=== PATIENT | female | born 1955 | race Caucasian/White ===

== ENCOUNTER 2019-12-02 13:43 | Day surgery (SDC) | payer OTHER ==
[2019-11-25 14:54] VITALS: BMI 31.6
--- NOTE | 2019-12-02 07:46 | OP ---
Operative Note - Note: Operative Date: 12/02/19 Pre-Operative Diagnosis: Right medial meniscus tear Operation: Right partial medial meniscectomy Implants: Arthrex distal radius locking plate, 4 distal locking screws, 2 proximal locking screws, 1 proximal nonlocking screw Post-Operative Diagnosis: Same as Pre-op Surgeon: Sushant Bianchi Furnace Setter: Michelle Gomez Anesthesia: General Operative Report Dictated: Yes
[2019-12-02] MEDS ORDERED: BUPIVACAINE HCL/PF 0.5% (5MG/ML) 10 ML VIAL ONE ×2 (13:49→15:27)
[2019-12-02] MEDS ORDERED: ROPIVACAINE HCL 0.5% 30ML VIAL ONE (14:04)
[2019-12-02] MEDS ORDERED: DEXAMETHASONE SOD PHOSPHATE/PF 10 MG/ML SDV ONE (14:04)
[2019-12-02] MEDS ORDERED: MIDAZOLAM HCL 2 MG/2 ML SINGLE DOSE VIAL ONE ×2 (14:04→14:57)
[2019-12-02] MEDS ORDERED: PROPOFOL 20 ML ONE ×2 (14:57→15:43)
[2019-12-02] MEDS ORDERED: oxyCODONE HCL 5 MG TABLET PO PRN (15:16)
[2019-12-02] MEDS ORDERED: ONDANSETRON 4 MG/2 ML VIAL IVPUSH PRN (15:16)
[2019-12-02] MEDS ORDERED: ONDANSETRON 4 MG/2 ML VIAL ONE (15:28)
[2019-12-02] MEDS ORDERED: DEXAMETHASONE SOD PHOSPHATE 4 MG/1 ML VIAL ONE (15:28)
[2019-12-02] MEDS ORDERED: LACTATED RINGERS SOLUTION 1,000 ML IV SCH (15:30)
--- NOTE | 2019-12-02 16:27 | OP ---
DATE OF OPERATION: 12/02/2019 PREOPERATIVE DIAGNOSIS: Right comminuted, intra-articular, displaced distal radius fracture. POSTOPERATIVE DIAGNOSIS: Right comminuted, intra-articular, displaced distal radius fracture. OPERATIVE PROCEDURES: 1. Open reduction internal fixation of right comminuted, intra-articular displaced distal radius fracture with internal fixation of 3 or more fragments. 2. Right brachioradialis tenotomy. SURGEON: Joshua Alcala MD MAGAZINE SUPERVISOR: KOFI Adamson ANESTHESIA: Regional and sedation. COMPLICATIONS: None. ESTIMATED BLOOD LOSS: Minimal. INDICATION FOR PROCEDURE: The patient is a 64-year-old female with the above finding indicated for operative treatment. Risks, benefits, alternatives were discussed with patient at length. Proper informed consent was obtained. DESCRIPTION OF PROCEDURE: After proper identification of patient and correct operative site, patient was brought to the operating room and placed supine on the table, bony prominences well padded. Sedation and regional anesthesia were given. Right upper extremity was prepped and draped in the usual sterile fashion. Well-padded tourniquet was placed with a sterile prep. Intravenous antibiotics given. Time-out procedure performed. Esmarch bandage to exsanguinate right upper extremity. Tourniquet was inflated to 250 mmHg. A longitudinal incision was made over the volar aspect of the wrist over flexor carpi radialis tendon. Incision was taken sharply through the skin with blunt and sharp dissection of subcutaneous tissues. Flexor carpi radialis tendon along with the contents of the carpal canal were bluntly and gently retracted in an ulnarward direction for the remainder of the procedure. Pronator quadratus divided and elevated off the distal radius. Highly comminuted fracture was noted with severe displacement. A brachioradialis tenotomy was necessary to free the radial styloid fragments in order to get them reduced. The shaft was pronated into the wound, and the fracture was reduced . A reduction was then performed, and the shaft was then reapproximated to the distal aspect of the radius with a reduction performed. This was held with an Arthrex distal radius locking plate with 4 distal locking screws and 3 proximal screws. Two of these were nonlocking, and one of these was locking. The nonlocking screws were bicortical. This provided secure, stable fixation. Full range of motion was achieved clinically in all directions. Scapholunate interval and distal radial joints were found to be stable. X-rays were taken to confirm proper placement and sizing of all hardware as well as proper reduction of fracture. The wound was irrigated and repaired in layers including the pronator quadratus with 4-0 Vicryl and 4-0 Monocryl suture. Steri-Strips, sterile dressings, and a volar wrist splint were placed. Patient was reversed from anesthesia and brought to recovery room in stable condition. She tolerated procedure well. Jorge Olivier, the assistant prosecuting attorney, was integral throughout the procedure. Procedure could not have been performed without a skilled operative assistant prosecuting attorney. JOSHUA ALCALA M.D. [id number]
[2019-12-02 17:39] VITALS: BP 119/70; PULSE 68; TEMP 97.9
== END 2019-12-02 17:39 | disposition home or self-care (01) ==
LOC: FASU 13:43
PROVIDERS: ATTEND Orthopaedic Surgery Hand Surgery
PROC: 0LN50ZZ Release Right Lower Arm and Wrist Tendon, Open Approach (ICD-10-PCS; 2019-12-02)
PROC: 0PSH04Z Reposition Right Radius with Internal Fixation Device, Open Approach (ICD-10-PCS; principal; 2019-12-02 15:00)
DX: S52.531A Colles' fracture of right radius, initial encounter for closed fracture (principal); X58.XXXA Exposure to other specified factors, initial encounter; Y93.9 Activity, unspecified; Y92.9 Unspecified place or not applicable
CPT/HCPCS: 25290; 25609; C1713; 73110-TC-RT-FY